=== PATIENT | male | born 2000 | race Hispanic/Latino ===

== ENCOUNTER 2022-11-06 04:04 | Emergency (ER) | payer OTHER ==
[~2022-11-06] VITALS: Ht 172.7 cm; Wt 149.7 kg
[2022-11-06] MEDS ORDERED: SODIUM CHLORIDE 0.9% 1000ML 1,000 ML IV STA (04:27)
[2022-11-06] MEDS ORDERED: KETOROLAC TROMETHAMINE 30 MG/ML VIAL IV ONE (04:30)
[2022-11-06] MEDS ORDERED: FAMOTIDINE 20 MG/2 ML VIAL IV ONE ×2 (04:30→04:44)
[2022-11-06] MEDS ORDERED: KETOROLAC TROMETHAMINE 30 MG/ML VIAL ONE (04:44)
[2022-11-06] MEDS ORDERED: SODIUM CHLORIDE 0.9% 1000ML 1,000 ML ONE (04:44)
[2022-11-06] MEDS ORDERED: FAMOTIDINE20 MG PO (04:52)
[2022-11-06] MEDS ORDERED: MAALOX MAXIMUM355 ML PO (04:52)
[2022-11-06] MEDS ORDERED: ONDANSETRON ODT4 MG PO (04:52)
[2022-11-06] MEDS ORDERED: IOPAMIDOL 370 MG/ML 100 ML INFUS..BTL INJ ONE (05:27)
== END 2022-11-06 06:40 | disposition home or self-care (01) ==
LOC: FSED 04:09
DX: A08.4 Viral intestinal infection, unspecified (principal); R07.89 Other chest pain; K76.0 Fatty (change of) liver, not elsewhere classified; F41.9 Anxiety disorder, unspecified; R94.31 Abnormal electrocardiogram [ECG] [EKG]
CPT/HCPCS: 71260; 80053; 82553; 84484; 85025; 85379; 93005; 99284; J1885; J7030; Q9967